=== PATIENT | male | born 1955 | race Hispanic/Latino ===

== ENCOUNTER 2016-07-16 02:12 | Emergency (ER) | payer OTHER, SELFPAY ==
[2016-07-16] MEDS ORDERED: Albuterol Sulfate 2.5 mg/0.5 ml Neb ONE ×2 (02:26→02:40)
[2016-07-16] MEDS ORDERED: Ipratropium Bromide 2.5 ml Neb ONE (02:26)
[2016-07-16] MEDS ORDERED: methylPREDNISolone Sod Succ/PF 125 MG/2 ML VIAL ONE (02:31)
[2016-07-16 02:45] LABS: #Basophils 0.2 thou/uL (0.0-0.2); #Neutrophils 6.8 thou/uL (1.40-6.50); %Basophils 1.4 % (0.0-1.0); %Eosinophils 6.8 % (0.0-10.0); %Lymphocytes 35.9 % (21.0-51.0); %Monocytes 7.2 % (0.0-10.0); %Neutrophils 48.6 % (42.0-75.0); Hemoglobin 13.7 g/dL (14.0-18.0); Mean Corpuscular HGB CONC 32.3 g/dL (32.0-36.0); Mean Corpuscular Hemoglobin 26.9 pg (27.0-31.0); Mean Corpuscular Volume 83.3 fl (80.0-94.0); Mean Platelet Volume 7.9 fL (7.4-10.4); Platelet Count 216 thou/uL (130-400); RBC Distribution Width 14.5 % (11.5-14.5); Red Blood Cell (RBC) Count 5.09 mill/uL (4.70-6.10); White Blood Cell (WBC) Count 14.1 thou/uL (4.8-10.8)
[2016-07-16 02:56] LABS: INR-International Normal Ratio 0.9; PTT 24.4 SEC (22.9-36.1); Prothrombin Time 12.5 SEC (12.0-14.7)
[2016-07-16 02:57] LABS: D-Dimer Test 1.35 *mcg/mL (0.27-0.43)
[2016-07-16] MEDS ORDERED: cefTRIAXone\\ROCEPHIN 1 GM VIAL ONE (03:00)
[2016-07-16] MEDS ORDERED: Sodium Chloride 0.9% 100 ML ONE (03:00)
[2016-07-16 03:07] LABS: CKMB 4.7 ng/mL (0-6.6); Troponin I 0.025 ng/mL (< 0.028)
[2016-07-16 03:08] LABS: ALT (SGPT) 17 U/L (0-55); AST (SGOT) 32 U/L (5-34); Albumin 3.2 g/dL (3.5-5.0); Alkaline Phosphatase 80 U/L (40-150); Anion Gap 17 mmol/L (10-20); BUN (Urea Nitrogen) 16 mg/dL (8.4-25.7); Bilirubin, Total 0.2 mg/dL (0.2-1.2); CK (CPK) 175 U/L (30-200); Calc. Creatinine Clearance 0 mL/min (70-130); Calcium 7.3 mg/dL (7.8-10.44); Carbon Dioxide 16 mmol/L (22-29); Chloride 110 mmol/L (98-107); Estimated GFR-MDRD 24; Globulin 4.1 g/dL (2.4-3.5); Glucose 154 mg/dL (70-105); Potassium 4.6 mmol/L (3.5-5.1); Protein, Total 7.3 g/dL (6.0-8.3); Sodium 138 mmol/L (136-145)
[2016-07-16] MEDS ORDERED: Furosemide 40 MG/4 ML VIAL ONE (03:25)
--- NOTE | 2016-07-16 08:16 | RAD ---
FRONTAL VIEW CHEST: COMPARISON: 02/16/13. CLINICAL HISTORY: Short of breath for 3 days. FINDINGS: There is alveolar and interstitial opacity of each lung. Cardiac silhouette and pulmonary vasculatu re are prominent. No significant effusion. Left lateral costophrenic sulcus is excluded from view limiting assessment. IMPRESSION: Findings most consistent with edema. Superimposed pneumonitis not excluded. Followup to resolution is recommended. POS: [facility]
== END 2016-07-16 03:50 | disposition short-term general hospital (02) ==
LOC: NAV ERS 02:12
DX: I11.0 Hypertensive heart disease with heart failure (principal); I50.9 Heart failure, unspecified; N28.9 Disorder of kidney and ureter, unspecified; R09.02 Hypoxemia; E11.9 Type 2 diabetes mellitus without complications
CPT/HCPCS: 36415; 71010; 80053; 82553; 83605; 83880; 84484; 85025; 85379; 85610; 85730; 87040; 93005; 94640; 94760; 96365; 96375; J0696; J1940; J2930; J7050; J7611; J7644

== ENCOUNTER 2016-12-28 03:38 | Emergency (ER) | payer OTHER, SELFPAY ==
[2016-12-28] MEDS ORDERED: Metoprolol Tartrate 5 MG/5 ML VIAL ONE (04:07)
[2016-12-28] MEDS ORDERED: Furosemide 40 MG/4 ML VIAL ONE ×2 (04:07→04:59)
[2016-12-28] MEDS ORDERED: Nitroglycerin 2% Ointment 1 INCH/1 GM Packet ONE (04:07)
[2016-12-28] MEDS ORDERED: methylPREDNISolone Sod Succ/PF 125 MG/2 ML VIAL ONE (04:07)
[2016-12-28 04:14] LABS: #Basophils 0.1 thou/uL (0.0-0.2); #Eosinphils 0.5 thou/uL (0.0-0.7); #Lymphocytes 1.8 thou/uL (1.20-3.40); #Monocytes 0.5 thou/uL (0.11-0.59); #Neutrophils 2.7 thou/uL (1.40-6.50); %Basophils 1.8 % (0.0-1.0); %Eosinophils 9.6 % (0.0-10.0); %Lymphocytes 32.5 % (21.0-51.0); %Monocytes 8.9 % (0.0-10.0); %Neutrophils 47.2 % (42.0-75.0); Hemoglobin 11.8 g/dL (14.0-18.0); Mean Corpuscular Hemoglobin 30.1 pg (27.0-31.0); Mean Corpuscular Volume 88.4 fl (80.0-94.0); Mean Platelet Volume 6.8 fL (7.4-10.4); Platelet Count 182 thou/uL (130-400); Red Blood Cell (RBC) Count 3.91 mill/uL (4.70-6.10); White Blood Cell (WBC) Count 5.6 thou/uL (4.8-10.8)
[2016-12-28 04:23] LABS: Anion Gap 18 mmol/L (10-20); BUN (Urea Nitrogen) 21 mg/dL (8.4-25.7); Calc. Creatinine Clearance 0 mL/min (70-130); Calcium 6.8 mg/dL (7.8-10.44); Carbon Dioxide 14 mmol/L (22-29); Chloride 108 mmol/L (98-107); Estimated GFR-MDRD 14; Glucose 114 mg/dL (70-105); Potassium 4.3 mmol/L (3.5-5.1); Sodium 136 mmol/L (136-145)
[2016-12-28 04:27] LABS: CKMB 4.1 ng/mL (0-6.6); Troponin I 0.012 ng/mL (< 0.028)
--- NOTE | 2016-12-28 08:24 | RAD ---
RADIOGRAPH CHEST 1 VIEW: Date: 12-28-16 Time: 3:59 a.m. HISTORY: 61-year-old male with dyspnea and chest pain. COMPARISON: 07-16-06 FINDINGS: Diffuse bilateral interstitial densities, especially at the mid and lower lung zones. Cardiac size a t upper limits of normal or mildly enlarged. Ectatic tortuous thoracic aorta. No pneumothorax. Later al costophrenic angles are sharp. No interval change. IMPRESSION: Bilateral interstitial pulmonary densities, similar to 07-16-16. DANIELA POS: [facility]
== END 2016-12-28 05:39 | disposition short-term general hospital (02) ==
LOC: NAV ERS 03:38
DX: I11.0 Hypertensive heart disease with heart failure (principal); I50.9 Heart failure, unspecified; E11.9 Type 2 diabetes mellitus without complications; E78.5 Hyperlipidemia, unspecified
CPT/HCPCS: 71010; 80048; 82553; 83880; 84484; 85025; 85379; 93005; 94640; 94760; 96374; 96375; 96376; J1940; J2930; J7620

== ENCOUNTER 2017-02-18 16:29 | Emergency (ER) | payer OTHER ==
[2017-02-18] MEDS ORDERED: Propofol 1,000 MG/100 ML VIAL IV ONE (17:29)
[2017-02-18] MEDS ORDERED: Furosemide 40 MG/4 ML VIAL ONE (17:38)
[2017-02-18] MEDS ORDERED: cefTRIAXone\\ROCEPHIN 2 GM VIAL ONE (17:39)
[2017-02-18] MEDS ORDERED: Albuterol Sulfate 2.5 mg/0.5 ml Neb ONE ×2 (17:40)
[2017-02-18 17:52] LABS: #Basophils 0.1 thou/uL (0.0-0.2); #Eosinphils 0.9 thou/uL (0.0-0.7); #Lymphocytes 3.2 thou/uL (1.20-3.40); #Neutrophils 13.6 thou/uL (1.40-6.50); %Basophils 0.6 % (0.0-1.0); %Eosinophils 4.7 % (0.0-10.0); %Monocytes 5.2 % (0.0-10.0); %Neutrophils 72.5 % (42.0-75.0); Hemoglobin 10.9 g/dL (14.0-18.0); Mean Corpuscular HGB CONC 30.8 g/dL (32.0-36.0); Mean Corpuscular Hemoglobin 27.9 pg (27.0-31.0); Mean Corpuscular Volume 90.5 fl (80.0-94.0); Mean Platelet Volume 7.7 fL (7.4-10.4); Platelet Count 191 thou/uL (130-400); RBC Distribution Width 14.6 % (11.5-14.5); White Blood Cell (WBC) Count 18.8 thou/uL (4.8-10.8)
[2017-02-18 18:10] LABS: Bilirubin Negative (Negative); Blood, Urine Large (Negative); Clarity Slightly Cloudy (Clear); Glucose, Urine (Dipstick) 100 mg/dL (Negative); Leukocyte Negative (Negative); Nitrite Negative (Negative); Protein, Urine (Dipstick) > or equal to 300 mg/dL (Neg-Trace); Urobilinogen 0.2 mg/dL (0.2-1.0); pH, Urine 5.5 (5.0-9.0)
[2017-02-18 18:13] LABS: ALT (SGPT) 19 U/L (8-55); AST (SGOT) 21 U/L (5-34); Albumin 3.9 g/dL (3.5-5.0); Alkaline Phosphatase 88 U/L (40-150); Anion Gap 19 mmol/L (10-20); BUN (Urea Nitrogen) 44 mg/dL (8.4-25.7); Bilirubin, Total 0.5 mg/dL (0.2-1.2); Calc. Creatinine Clearance 0 mL/min (70-130); Calcium 7.5 mg/dL (7.8-10.44); Carbon Dioxide 16 mmol/L (22-29); Chloride 107 mmol/L (98-107); Estimated GFR-MDRD 9; Globulin 3.9 g/dL (2.4-3.5); Glucose 158 mg/dL (70-105); Potassium 5.1 mmol/L (3.5-5.1); Protein, Total 7.8 g/dL (6.0-8.3); Sodium 137 mmol/L (136-145)
[2017-02-18 18:14] LABS: CKMB 3.2 ng/mL (0-6.6); Troponin I 0.013 ng/mL (< 0.028)
[2017-02-18 18:16] LABS: Bacteria/HPF Rare-Few HPF (None Seen); Crystals/HPF 2+ AMORPH URATES HPF (Negative); RBC/HPF GREATER THAN 50-TNTC HPF (0-3); Squamous Epithelial 0-3 HPF (0-3)
--- NOTE | 2017-02-18 18:25 | RAD ---
AP VIEW OF THE CHEST 02/18/17 INDICATION: Pulmonary edema and intubation. COMPARISON: Prior exam dated 01/16/17. FINDINGS: The patient has been intervally intubated. The tip of the ET tube is 4.3 cm from the renea. The jacque blayne catheter projects below the left hemidiaphragm beyond the field of view. When compared to the [facility] recent comparison dated 01/16/17, the patient has developed cardiomegaly with diffuse bilateral per ihilar and interstitial air space opacity suspicious for pneumonia, hemorrhage or edema. Left costoph renic angle is excluded. Right costophrenic is sharp. No pneumothorax is evident. IMPRESSION: 1. Intubation and gastric catheter placement. 2. Cardiomegaly with perihilar opacities may reflect edema, pneumonia or hemorrhage. POS: [facility]
== END 2017-02-18 18:13 | disposition short-term general hospital (02) ==
LOC: NAV ERS 16:29
DX: J96.90 Respiratory failure, unspecified, unspecified whether with hypoxia or hypercapnia (principal); E11.9 Type 2 diabetes mellitus without complications; I11.0 Hypertensive heart disease with heart failure; I50.9 Heart failure, unspecified; E78.5 Hyperlipidemia, unspecified
CPT/HCPCS: 31500; 51701; 71010; 80053; 81003; 81015; 82553; 83605; 84484; 85025; 93005; 96365; 96374; 96375; 99292; J0696; J1940; J2704; J7611